=== PATIENT | male | born 1955 | race Caucasian/White ===

== ENCOUNTER 2016-08-09 20:59 | Emergency (ER) | payer OTHER ==
[~2016-08-09 20:59] MED LIST: ALLE180T33 PO; ASTE0.15; ATOR1TAB19 PO; FLON1SPR; LOSA25TA8 PO; SIMV10TA2 PO
[2016-08-09] MEDS ORDERED: KETOROLAC 30 MG/ML VIAL (J1885) As Ordered ONE (22:47)
[2016-08-09 22:55] LABS: BASO # 0.1 K/mm3 (0.0-0.2); BASO % 1.4 % (0.0-1.0); EOS # 0.1 K/mm3 (0.0-0.50); EOS % 2.3 % (0.0-3.0); LARGE UNSTAINED CELL # 0.1 K/mm3 (0.0-0.4); LARGE UNSTAINED CELL % 2.3 % (0.0-4.0); LYMPH # 1.7 K/mm3 (1.5-4.5); LYMPH % 29.1 % (24.0-44.0); MEAN CORPUSCULAR HEMOGLOBIN 30.5 pg (27.0-33.0); MEAN CORPUSCULAR HGB CONC 34.2 g/dl (32.0-36.5); MEAN CORPUSCULAR VOLUME 89.3 fl (80.0-96.0); MONO # 0.5 K/mm3 (0.0-0.8); MONO % 8.4 % (0.0-5.0); NEUTROPHILS # 3.1 K/mm3 (1.8-7.7); NEUTROPHILS % 56.5 % (36.0-66.0); PLATELET COUNT, AUTOMATED 228 k/mm3 (150-450); RED CELL DISTRIBUTION WIDTH 13.4 % (11.5-14.5); WHITE BLOOD COUNT 5.5 K/mm3 (4.0-10.0)
[2016-08-09 23:24] LABS: ANION GAP 7 MEQ/L (8-16); BLOOD UREA NITROGEN 22 MG/DL (7-18); CALCIUM LEVEL 8.9 MG/DL (8.5-10.1); CARBON DIOXIDE LEVEL 30 MEQ/L (21-32); CHLORIDE LEVEL 107 MEQ/L (98-107); CREATININE FOR GFR 0.89 MG/DL (0.70-1.30); GLOMERULAR FILTRATION RATE > 60.0 (>56); GLUCOSE, FASTING 103 MG/DL (70-105); POTASSIUM SERUM 4.1 MEQ/L (3.5-5.1); SODIUM LEVEL 144 MEQ/L (136-145)
--- NOTE | 2016-08-10 00:20 | REPUSA ---
CLINICAL HISTORY: Testicular pain. TECHNIQUE: Realtime sonographic images were obtained in multiple projections. COMMENTS: Both testicles are of normal size and shape and are of homogeneous echo texture. The right testicle m easures 4.4x2.9x3.4 cm. The right epididymis measures 9.2 mm. The left testicle measures 4.3x2.2x2.9 cm . The left epididymis measures 7.7 mm. Color Doppler images reveal normal symmetrical flow to the testicles. There is no evidence for testic ular torsion. There is left varicocele without hydrocele. IMPRESSION: Unremarkable testicles. Left varicocele. Thank you for your kind referral of this patient.
--- NOTE | 2016-08-10 01:01 | EDDOCDS ---
Physician Documentation [facility] Name: Andrés Jenkins Age: 60 yrs Sex: Male : 1955 Arrival Date: 08/09/2016 Time: 20:59 Bed PR Private MD: Other - Complete Info On Cds Disposition: 08/10/16 00:54 Discharged to Home/Self Care. Impression: Orchitis. - Condition is Stable. - Discharge Instructions: Orchitis. - Prescriptions for Ibuprofen 600 mg Oral Tablet - take 1 tablet by ORAL route every 6 hours As needed take with food; 30 tablet. - Medication Reconciliation, Local Pharmacy Hours form. - Follow up: Prudencio Jordan; When: 1 week; Reason: Recheck today's complaints, Continuance of care. - Problem is new. - Symptoms have improved. - Notes: USE MOTRIN AND SCROTAL SUPPORT FOR 1 WEEK, FOLLOW UP WITH DR JORDAN, RETURN TO THE ER IF THE SYMPTOMS WORSEN OR BECOME CONCERNING Historical: - Allergies: PENICILLINS; SULFA (SULFONAMIDES); - Home Meds: 1. losartan 25 mg oral tab Unknown once daily 2. atorvastatin 20 mg oral tab 1 tab once daily pt stopped taking because he googled his symptoms and though this medication was the cause (Last dose: 08/07/2016) 3. Flonase 50 mcg/actuation Nasal spsn - PMHx: Hypercholesterolemia; Hypertension; Pneumothorax, Spontaneousx 3; - PSHx: removal of salavary gland; - Social history: Smoking status: Patient states former smoker of tobacco. No barriers to communication noted, The patient speaks fluent Occitan. - Family history: Not pertinent. - : The pt / caregiver states he / she is not on anticoagulants. Home medication list is obtained from the patient. - Exposure Risk Screening:: None identified. Vital Signs: 08/09 21:02 BP 163 / 85; Pulse 73; Resp 18 S; Temp 97.1(O); Pulse Ox 99% on R/A; Weight 81.65 kg / dd6 180.01 lbs (R); Height 5 ft. 8 in. (172.72 cm) (R); Pain 6/10; 08/10 00:58 BP 158 / 76; Pulse 78; Resp 18; Temp 98.2(O); Pulse Ox 99% on R/A; Pain 4/10; jmb 08/09 21:02 Body Mass Index 27.37 (81.65 kg, 172.72 cm) dd6 MDM: 08/09 21:11 UA Ordered. EDMS 21:11 Urine Culture Ordered. EDMS 22:43 ketorolac 60 mg IM once ordered. ck7 22:44 CBC with Diff Ordered. EDMS 22:44 MED Profile Ordered. EDMS 22:44 Scrotal, US Ordered. EDMS 23:25 CBC with Diff Reviewed. ck7 23:25 MED Profile Reviewed. ck7 23:25 UA Reviewed. ck7 08/10 00:07 DUPLEX SCAN LIMITED (DOPPLER) Ordered. EDMS 00:38 Scrotal, US Reviewed. ck7 00:46 Financial registration complete. hs2 00:51 [facility] Payment Agreement was scanned into [employer] and attached to record. hs2 Administered Medications: 08/09 22:49 Drug: ketorolac 60 mg [ketorolac 30 mg/mL (1 mL) injection solution (2 mL)] Route: IM; cz Site: right gluteus; Signatures: Dispatcher [employer] EDMS Haresh Chase, RPA-C RPA-Cck7 David BustamanteRN RN Sloane Griffith RN RN ms18 Lucy Elliott, Reg Reg hs2 Jesus Ballesteros RN cz The chart was reviewed and I authenticate all verbal orders and agree with the evaluation and treatment provided.Attachments: 08/10 00:51 [facility] Payment Agreement hs2 MTDD
--- NOTE | 2016-08-10 01:01 | EDDOCDS ---
Nurse's Notes [facility] Name: Andrés Jenkins Age: 60 yrs Sex: Male : 1955 Arrival Date: 08/09/2016 Time: 20:59 Bed PR Private MD: Other - Complete Info On Cds Diagnosis: Orchitis Presentation: 08/09 21:04 Presenting complaint: Patient states: that he has bilateral testicle pain, lower back ms18 pain, and burning with urination. Pt states that this same thing happened to him approx 1 month ago. Adult Sepsis Screening: The patient does not have new or worsening altered mentation. Patient's respiratory rate is less than 22. Systolic blood pressure is greater than 100. Patient has a qSOFA score of 0- Negative Sepsis Screen. Suicide/Homicide risk assessment- the patient denies having any suicidal and/or homicidal ideations and does not present with any other emotional, behavioral or mental health complaints. Status: Patient is not a patient service associate or dependent. Transition of care: patient was not received from another setting of care. 21:04 Acuity: SUDHIR Level 3 ms18 21:04 Method Of Arrival: Walkin/Carried/Asstd ms18 Triage Assessment: 21:10 General: Appears in no apparent distress, comfortable, Behavior is appropriate for age, ms18 cooperative. Pain: Location: low back area and pelvis Pain currently is 7 out of 10 on a pain scale. HIV screening NA for this visit Offered previously. Neurological: No deficits noted. Respiratory: Airway is patent. Derm: Skin is pink, warm & dry. Historical: - Allergies: PENICILLINS; SULFA (SULFONAMIDES); - Home Meds: 1. losartan 25 mg oral tab Unknown once daily 2. atorvastatin 20 mg oral tab 1 tab once daily pt stopped taking because he googled his symptoms and though this medication was the cause (Last dose: 08/07/2016) 3. Flonase 50 mcg/actuation Nasal spsn - PMHx: Hypercholesterolemia; Hypertension; Pneumothorax, Spontaneousx 3; - PSHx: removal of salavary gland; - Social history: Smoking status: Patient states former smoker of tobacco. No barriers to communication noted, The patient speaks fluent Australian. - Family history: Not pertinent. - : The pt / caregiver states he / she is not on anticoagulants. Home medication list is obtained from the patient. - Exposure Risk Screening:: None identified. Screenin/03 00:58 Screening information is obtained from the patient. Fall risk: No risks identified. jmb Assistance ADL's: requires no assistance with activities of daily living. Abuse/DV Screen: The patient / caregiver reports he/she is: not in a situation that causes fear, pain or injury. Nutritional screening: No deficits noted. Advance Directives: Currently, there is no health care proxy. There is no active DNR order. There is no living will. There is no Power of Dispatch Supervisor. home support is adequate. Assessment: 00:58 General: Patient instructed on discharge instructions. Patient asked if there were any b questions regarding discharge, patient stated no. Patient signed discharge instructions. Patient discharged in stable condition. . Vital Signs: 08/09 21:02 BP 163 / 85; Pulse 73; Resp 18 S; Temp 97.1(O); Pulse Ox 99% on R/A; Weight 81.65 kg dd6 (R); Height 5 ft. 8 in. (172.72 cm) (R); Pain 6/10; 08/10 00:58 BP 158 / 76; Pulse 78; Resp 18; Temp 98.2(O); Pulse Ox 99% on R/A; Pain 4/10; jmb 08/09 21:02 Body Mass Index 27.37 (81.65 kg, 172.72 cm) dd6 Vitals: 08/09 21:02 Log In Time: August 09, 2016 at 21:02. dd6 ED Course: 21:02 Patient visited by Maksim Wilson PCA. dd6 21:02 Other - Complete Info On Cds is Private Physician. dd6 21:02 Patient moved to Waiting dd6 21:03 Patient visited by Maksim Wilson PCA. dd6 21:03 Patient moved to Pre RCE dd6 21:06 Triage Initiated ms18 22:10 Patient moved to Triage 3 ar3 22:13 Haresh Chase RPA-C is PHCP. ck7 22:13 Duncan Pena MD is Attending Physician. ck7 22:23 Patient visited by Haresh Chase RPA-C. ck7 22:48 MED Profile Sent. ar3 22:48 CBC with Diff Sent. ar3 22:49 Patient moved to TR3 jmb 22:54 Patient visited by Haresh Chase RPA-C. ck7 23:25 Patient visited by Haresh Chase RPA-C. ck7 23:41 Patient moved to Ultrasound dmg 0103 00:09 Patient moved to TR3 dmg 00:21 Scrotal, US Returned. EDMS 00:23 Patient moved to TR1 jmb 00:25 Patient visited by Haresh Chase RPA-C. ck7 00:35 Patient moved to PR2 / jmb 00:51 [facility] Payment Agreement was scanned into [employer] and attached to record. hs2 00:53 Prudencio Meyers is Referral Physician. ck7 00:54 Patient name changed from Andrés\S\\S\Ciulo\S\ to Andrés\S\Pavan\S\Ciulo. EDMS 00:58 The patient / caregiver is instructed regarding the plan of care and ED course. jmb 00:58 No IV's were initiated during this patient's visit. No procedures done that require b assistance. Administered Medications: 08/09 22:49 Drug: ketorolac 60 mg [ketorolac 30 mg/mL (1 mL) injection solution (2 mL)] Route: IM; cz Site: right gluteus; Order Results: Lab Order: UA; SPEC'M 08/09/16 21:15 Test: APPEARANCE, URINE; Value: CLEAR; Range: CLEAR; Status: F Test: COLOR, URINE; Value: COLORLESS; Range: YELLOW; Status: F Test: PH,URINE; Value: 6.0; Range: 5.0-9.0; Units: UNITS; Status: F Test: SPECIFIC GRAVITY URINE AUTO; Value: 1.002; Range: 1.002-1.035; Status: F Test: PROTEIN, URINE AUTO; Value: NEGATIVE; Range: NEGATIVE; Units: mg/dL; Status: F Test: GLUCOSE, URINE (UA) AUTO; Value: NEGATIVE; Range: NEGATIVE; Units: mg/dL; Status: F Test: KETONE, URINE AUTO; Value: NEGATIVE; Range: NEGATIVE; Units: mg/dL; Status: F Test: UROBILINOGEN, URINE AUTO; Value: 0.2; Range: 0.0-2.0; Units: mg/dL; Status: F Test: BILIRUBIN, URINE AUTO; Value: NEGATIVE; Range: NEGATIVE; Status: F Test: NITRITE, URINE AUTO; Value: NEGATIVE; Range: NEGATIVE; Status: F Test: LEUKOCYTE ESTERASE, URINE AUTO; Value: NEGATIVE; Range: NEGATIVE; Status: F Test: BLOOD, URINE BLOOD; Value: NEGATIVE; Range: NEGATIVE; Status: F Test: WBC, URINE AUTO; Value: 0; Range: 0-3; Units: /HPF; Status: F Test: RBC, URINE AUTO; Value: 1; Range: 0-3; Units: /HPF; Status: F Test: BACTERIA, URINE AUTO; Value: NEGATIVE; Range: NEGATIVE; Status: F Test: SQUAMOUS EPITHELIAL CELL UR AU; Value: 0; Range: 0-6; Units: /HPF; Status: F Test: HYALINE CAST, URINE AUTO; Value: 0; Range: 0-1; Units: /LPF; Status: F Lab Order: CBC with Diff; SPEC'M 08/09/16 22:48 Test: WHITE BLOOD COUNT; Value: 5.5; Range: 4.0-10.0; Units: K/mm3; Status: F Test: RED BLOOD COUNT; Value: 4.60; Range: 4.30-6.10; Units: M/mm3; Status: F Test: HEMOGLOBIN; Value: 14.0; Range: 14.0-18.0; Units: g/dl; Status: F Test: HEMATOCRIT; Value: 41.1; Range: 42.0-52.0; Abnormal: Below low normal; Units: %; Status: F Test: MEAN CORPUSCULAR VOLUME; Value: 89.3; Range: 80.0-96.0; Units: fl; Status: F Test: MEAN CORPUSCULAR HEMOGLOBIN; Value: 30.5; Range: 27.0-33.0; Units: pg; Status: F Test: MEAN CORPUSCULAR HGB CONC; Value: 34.2; Range: 32.0-36.5; Units: g/dl; Status: F Test: RED CELL DISTRIBUTION WIDTH; Value: 13.4; Range: 11.5-14.5; Units: %; Status: F Test: PLATELET COUNT, AUTOMATED; Value: 228; Range: 150-450; Units: k/mm3; Status: F Test: NEUTROPHILS %; Value: 56.5; Range: 36.0-66.0; Units: %; Status: F Test: LYMPH %; Value: 29.1; Range: 24.0-44.0; Units: %; Status: F Test: MONO %; Value: 8.4; Range: 0.0-5.0; Abnormal: Above high normal; Units: %; Status: F Test: EOS %; Value: 2.3; Range: 0.0-3.0; Units: %; Status: F Test: BASO %; Value: 1.4; Range: 0.0-1.0; Abnormal: Above high normal; Units: %; Status: F Test: LARGE UNSTAINED CELL %; Value: 2.3; Range: 0.0-4.0; Units: %; Status: F Test: NEUTROPHILS #; Value: 3.1; Range: 1.8-7.7; Units: K/mm3; Status: F Test: LYMPH #; Value: 1.7; Range: 1.5-4.5; Units: K/mm3; Status: F Test: MONO #; Value: 0.5; Range: 0.0-0.8; Units: K/mm3; Status: F Test: EOS #; Value: 0.1; Range: 0.0-0.50; Units: K/mm3; Status: F Test: BASO #; Value: 0.1; Range: 0.0-0.2; Units: K/mm3; Status: F Test: LARGE UNSTAINED CELL #; Value: 0.1; Range: 0.0-0.4; Units: K/mm3; Status: F Lab Order: MED Profile; SPEC'M 08/09/16 22:48 Test: GLUCOSE, FASTING; Value: 103; Range: 70-105; Units: MG/DL; Status: F Test: BLOOD UREA NITROGEN; Value: 22; Range: 7-18; Abnormal: Above high normal; Units: MG/DL; Status: F Test: CREATININE FOR GFR; Value: 0.89; Range: 0.70-1.30; Units: MG/DL; Status: F Test: GLOMERULAR FILTRATION RATE; Value: > 60.0; Range: >56; Status: F Test: SODIUM LEVEL; Value: 144; Range: 136-145; Units: MEQ/L; Status: F Test: POTASSIUM SERUM; Value: 4.1; Range: 3.5-5.1; Units: MEQ/L; Status: F Test: CHLORIDE LEVEL; Value: 107; Range: 98-107; Units: MEQ/L; Status: F Test: CARBON DIOXIDE LEVEL; Value: 30; Range: 21-32; Units: MEQ/L; Status: F Test: ANION GAP; Value: 7; Range: 8-16; Abnormal: Below low normal; Units: MEQ/L; Status: F Test: CALCIUM LEVEL; Value: 8.9; Range: 8.5-10.1; Units: MG/DL; Status: F Test Note: ; Units are mL/min/1.73 m2 Chronic Kidney Disease Staging per NKF: Stage I & II GFR >=60 Normal to Mildly Decreased Stage III GFR 30-59 Moderately Decreased Stage IV GFR 15-29 Severely Decreased Stage V GFR <15 Very Little GFR Left ESRD GFR <15 on [employer] Radiology Order: Scrotal, US Test: Scrotal, US REASON FOR EXAMINATION: TESTICULAR PAIN, R/O TORSION; ; CLINICAL HISTORY: Testicular pain.; TECHNIQUE: Realtime sonographic images were obtained in multiple projections.; COMMENTS:; Both testicles are of normal size and shape and are of homogeneous echo texture. The right testicle m; easures 4.4x2.9x3.4 cm. The right epididymis measures 9.2 mm. The left testicle measures 4.3x2.2x2.9; cm . The left epididymis measures 7.7 mm.; Color Doppler images reveal normal symmetrical flow to the testicles. There is no evidence for testic; ular torsion. There is left varicocele without hydrocele.; IMPRESSION:; Unremarkable testicles.; Left varicocele.; Thank you for your kind referral of this patient.; ; Outcome: 08/10 00:54 Discharge ordered by Provider. ck7 00:58 Discharge Assessment: Patient awake, alert and oriented x 3. No cognitive and/or jmb functional deficits noted. Patient verbalized understanding of disposition instructions. Patient awake and alert. obeys commands, Oriented to person, place and time. Patient verbalized understanding of disposition instructions. Patient has no functional deficits. patient administered narcotics - no. The following High Risk Discharge criteria are identified: None. Discharged to home ambulatory. Condition: stable. Discharge instructions given to patient, Instructed on discharge instructions, follow up and referral plans. medication usage, Demonstrated understanding of instructions, medications, Pt was receptive of discharge instructions/ teaching. Ultrasound Study completed. Property sent home with patient. 01:00 Patient left the ED. leatha Signatures: Dispatcher [employer] EDMS Jesus Ballesteros, RN RN Afia Adams Daniell, MOUNTER SAXOPHONES MOUNTER SAXOPHONES dd6 Kaitlynn Cannon, MOUNTER SAXOPHONES MOUNTER SAXOPHONES ar3 Haresh Chase, RPA-C RPA-Cck7 David Bustamante RN RN jmb Smith, Mallory, RN RN ms18 Lucy Elliott, Reg Reg hs2 MIKE
--- NOTE | 2016-08-12 02:01 | EDDOCDS ---
Physician Documentation [facility] Name: Andrés Jenkins Age: 60 yrs Sex: Male : 1955 Arrival Date: 08/09/2016 Time: 20:59 Bed PR Private MD: Other - Complete Info On Cds Disposition: 08/10/16 00:54 Discharged to Home/Self Care. Impression: Orchitis. - Condition is Stable. - Discharge Instructions: Orchitis. - Prescriptions for Ibuprofen 600 mg Oral Tablet - take 1 tablet by ORAL route every 6 hours As needed take with food; 30 tablet. - Medication Reconciliation, Local Pharmacy Hours form. - Follow up: Prudencio Jordan; When: 1 week; Reason: Recheck today's complaints, Continuance of care. - Problem is new. - Symptoms have improved. - Notes: USE MOTRIN AND SCROTAL SUPPORT FOR 1 WEEK, FOLLOW UP WITH DR JORDAN, RETURN TO THE ER IF THE SYMPTOMS WORSEN OR BECOME CONCERNING Historical: - Allergies: PENICILLINS; SULFA (SULFONAMIDES); - Home Meds: 1. losartan 25 mg oral tab Unknown once daily 2. atorvastatin 20 mg oral tab 1 tab once daily pt stopped taking because he googled his symptoms and though this medication was the cause (Last dose: 08/07/2016) 3. Flonase 50 mcg/actuation Nasal spsn - PMHx: Hypercholesterolemia; Hypertension; Pneumothorax, Spontaneousx 3; - PSHx: removal of salavary gland; - Social history: Smoking status: Patient states former smoker of tobacco. No barriers to communication noted, The patient speaks fluent Pashto. - Family history: Not pertinent. - : The pt / caregiver states he / she is not on anticoagulants. Home medication list is obtained from the patient. - Exposure Risk Screening:: None identified. Vital Signs: 08/09 21:02 BP 163 / 85; Pulse 73; Resp 18 S; Temp 97.1(O); Pulse Ox 99% on R/A; Weight 81.65 kg / dd6 180.01 lbs (R); Height 5 ft. 8 in. (172.72 cm) (R); Pain 6/10; 08/10 00:58 BP 158 / 76; Pulse 78; Resp 18; Temp 98.2(O); Pulse Ox 99% on R/A; Pain 4/10; jmb 08/09 21:02 Body Mass Index 27.37 (81.65 kg, 172.72 cm) dd6 MDM: 08/09 21:11 UA Ordered. EDMS 21:11 Urine Culture Ordered. EDMS 22:43 ketorolac 60 mg IM once ordered. ck7 22:44 CBC with Diff Ordered. EDMS 22:44 MED Profile Ordered. EDMS 22:44 Scrotal, US Ordered. EDMS 23:25 CBC with Diff Reviewed. ck7 23:25 MED Profile Reviewed. ck7 23:25 UA Reviewed. ck7 08/10 00:07 DUPLEX SCAN LIMITED (DOPPLER) Ordered. EDMS 00:38 Scrotal, US Reviewed. ck7 00:46 Financial registration complete. hs2 00:51 [facility] Payment Agreement was scanned into [employer] and attached to record. hs2 04:37 T-Sheet-- Draft Copy was scanned into [employer] and attached to record. hs2 Administered Medications: 08/09 22:49 Drug: ketorolac 60 mg [ketorolac 30 mg/mL (1 mL) injection solution (2 mL)] Route: IM; cz Site: right gluteus; Signatures: Dispatcher [employer] EDMS Haresh Chase, BERNADETTE-C RPA-Cck7 David BustamanteRN RN jmSloane Lazo,JOSÉ LUIS RN ms18 Luyc Elliott, Reg Reg hs2 Jesus Ballesteros RN cz The chart was reviewed and I authenticate all verbal orders and agree with the evaluation and treatment provided.Attachments: 08/10 00:51 [facility] Payment Agreement hs2 04:37 T-Sheet-- Draft Copy hs2 Chart Complete MTDD
--- NOTE | 2016-08-12 02:01 | EDDOCDS ---
Nurse's Notes [facility] Name: Andrés Jenkins Age: 60 yrs Sex: Male : 1955 Arrival Date: 08/09/2016 Time: 20:59 Bed PR Private MD: Other - Complete Info On Cds Diagnosis: Orchitis Presentation: 08/09 21:04 Presenting complaint: Patient states: that he has bilateral testicle pain, lower back ms18 pain, and burning with urination. Pt states that this same thing happened to him approx 1 month ago. Adult Sepsis Screening: The patient does not have new or worsening altered mentation. Patient's respiratory rate is less than 22. Systolic blood pressure is greater than 100. Patient has a qSOFA score of 0- Negative Sepsis Screen. Suicide/Homicide risk assessment- the patient denies having any suicidal and/or homicidal ideations and does not present with any other emotional, behavioral or mental health complaints. Status: Patient is not a director of physiotherapy services or dependent. Transition of care: patient was not received from another setting of care. 21:04 Acuity: SUDHIR Level 3 ms18 21:04 Method Of Arrival: Walkin/Carried/Asstd ms18 Triage Assessment: 21:10 General: Appears in no apparent distress, comfortable, Behavior is appropriate for age, ms18 cooperative. Pain: Location: low back area and pelvis Pain currently is 7 out of 10 on a pain scale. HIV screening NA for this visit Offered previously. Neurological: No deficits noted. Respiratory: Airway is patent. Derm: Skin is pink, warm & dry. Historical: - Allergies: PENICILLINS; SULFA (SULFONAMIDES); - Home Meds: 1. losartan 25 mg oral tab Unknown once daily 2. atorvastatin 20 mg oral tab 1 tab once daily pt stopped taking because he googled his symptoms and though this medication was the cause (Last dose: 08/07/2016) 3. Flonase 50 mcg/actuation Nasal spsn - PMHx: Hypercholesterolemia; Hypertension; Pneumothorax, Spontaneousx 3; - PSHx: removal of salavary gland; - Social history: Smoking status: Patient states former smoker of tobacco. No barriers to communication noted, The patient speaks fluent Ugandan. - Family history: Not pertinent. - : The pt / caregiver states he / she is not on anticoagulants. Home medication list is obtained from the patient. - Exposure Risk Screening:: None identified. Screenin/03 00:58 Screening information is obtained from the patient. Fall risk: No risks identified. jmb Assistance ADL's: requires no assistance with activities of daily living. Abuse/DV Screen: The patient / caregiver reports he/she is: not in a situation that causes fear, pain or injury. Nutritional screening: No deficits noted. Advance Directives: Currently, there is no health care proxy. There is no active DNR order. There is no living will. 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 home support is adequate. Assessment: 00:58 General: Patient instructed on discharge instructions. Patient asked if there were any b questions regarding discharge, patient stated no. Patient signed discharge instructions. Patient discharged in stable condition. . Vital Signs: 08/09 21:02 BP 163 / 85; Pulse 73; Resp 18 S; Temp 97.1(O); Pulse Ox 99% on R/A; Weight 81.65 kg dd6 (R); Height 5 ft. 8 in. (172.72 cm) (R); Pain 6/10; 08/10 00:58 BP 158 / 76; Pulse 78; Resp 18; Temp 98.2(O); Pulse Ox 99% on R/A; Pain 4/10; jmb 08/09 21:02 Body Mass Index 27.37 (81.65 kg, 172.72 cm) dd6 Vitals: 08/09 21:02 Log In Time: August 09, 2016 at 21:02. dd6 ED Course: 21:02 Patient visited by Maksim Wilson PCA. dd6 21:02 Other - Complete Info On Cds is Private Physician. dd6 21:02 Patient moved to Waiting dd6 21:03 Patient visited by Maksim Wilson PCA. dd6 21:03 Patient moved to Pre RCE dd6 21:06 Triage Initiated ms18 22:10 Patient moved to Triage 3 ar3 22:13 Haresh Chase RPA-C is PHCP. ck7 22:13 Duncan Pena MD is Attending Physician. ck7 22:23 Patient visited by Haresh Chase RPA-C. ck7 22:48 MED Profile Sent. ar3 22:48 CBC with Diff Sent. ar3 22:49 Patient moved to TR3 jmb 22:54 Patient visited by Haresh Chase RPA-C. ck7 23:25 Patient visited by Haresh Chase RPA-C. ck7 23:41 Patient moved to Ultrasound dmg 0103 00:09 Patient moved to TR3 dmg 00:21 Scrotal, US Returned. EDMS 00:23 Patient moved to TR1 jmb 00:25 Patient visited by Haresh Chase RPA-C. ck7 00:35 Patient moved to PR2 / 26 jmb 00:51 [place] [place] into [employer] and attached to record. hs2 00:53 Prudencio Meyers is Referral Physician. ck7 00:54 Patient name changed from Andrés\S\\S\Ciulo\S\ to Andrés\S\Pavan\S\Ciulo. EDMS 00:58 The patient / caregiver is instructed regarding the plan of care and ED course. jmb 00:58 No IV's were initiated during this patient's visit. No procedures done that require b assistance. 04:37 T-Sheet-- Draft Copy was scanned into Matter[employer] and attached to record. hs2 Administered Medications: 08/09 22:49 Drug: ketorolac 60 mg [ketorolac 30 mg/mL (1 mL) injection solution (2 mL)] Route: IM; cz Site: right gluteus; Order Results: Lab Order: UA; SPEC'M 08/09/16 21:15 Test: APPEARANCE, URINE; Value: CLEAR; Range: CLEAR; Status: F Test: COLOR, URINE; Value: COLORLESS; Range: YELLOW; Status: F Test: PH,URINE; Value: 6.0; Range: 5.0-9.0; Units: UNITS; Status: F Test: SPECIFIC GRAVITY URINE AUTO; Value: 1.002; Range: 1.002-1.035; Status: F Test: PROTEIN, URINE AUTO; Value: NEGATIVE; Range: NEGATIVE; Units: mg/dL; Status: F Test: GLUCOSE, URINE (UA) AUTO; Value: NEGATIVE; Range: NEGATIVE; Units: mg/dL; Status: F Test: KETONE, URINE AUTO; Value: NEGATIVE; Range: NEGATIVE; Units: mg/dL; Status: F Test: UROBILINOGEN, URINE AUTO; Value: 0.2; Range: 0.0-2.0; Units: mg/dL; Status: F Test: BILIRUBIN, URINE AUTO; Value: NEGATIVE; Range: NEGATIVE; Status: F Test: NITRITE, URINE AUTO; Value: NEGATIVE; Range: NEGATIVE; Status: F Test: LEUKOCYTE ESTERASE, URINE AUTO; Value: NEGATIVE; Range: NEGATIVE; Status: F Test: BLOOD, URINE BLOOD; Value: NEGATIVE; Range: NEGATIVE; Status: F Test: WBC, URINE AUTO; Value: 0; Range: 0-3; Units: /HPF; Status: F Test: RBC, URINE AUTO; Value: 1; Range: 0-3; Units: /HPF; Status: F Test: BACTERIA, URINE AUTO; Value: NEGATIVE; Range: NEGATIVE; Status: F Test: SQUAMOUS EPITHELIAL CELL UR AU; Value: 0; Range: 0-6; Units: /HPF; Status: F Test: HYALINE CAST, URINE AUTO; Value: 0; Range: 0-1; Units: /LPF; Status: F Lab Order: Urine Culture; SPEC'M 08/09/16 21:15 Test: URINE CULTURE; Value: URINE CULTURE RESULT NO GROWTH; Status: F Lab Order: CBC with Diff; SPEC'M 08/09/16 22:48 Test: WHITE BLOOD COUNT; Value: 5.5; Range: 4.0-10.0; Units: K/mm3; Status: F Test: RED BLOOD COUNT; Value: 4.60; Range: 4.30-6.10; Units: M/mm3; Status: F Test: HEMOGLOBIN; Value: 14.0; Range: 14.0-18.0; Units: g/dl; Status: F Test: HEMATOCRIT; Value: 41.1; Range: 42.0-52.0; Abnormal: Below low normal; Units: %; Status: F Test: MEAN CORPUSCULAR VOLUME; Value: 89.3; Range: 80.0-96.0; Units: fl; Status: F Test: MEAN CORPUSCULAR HEMOGLOBIN; Value: 30.5; Range: 27.0-33.0; Units: pg; Status: F Test: MEAN CORPUSCULAR HGB CONC; Value: 34.2; Range: 32.0-36.5; Units: g/dl; Status: F Test: RED CELL DISTRIBUTION WIDTH; Value: 13.4; Range: 11.5-14.5; Units: %; Status: F Test: PLATELET COUNT, AUTOMATED; Value: 228; Range: 150-450; Units: k/mm3; Status: F Test: NEUTROPHILS %; Value: 56.5; Range: 36.0-66.0; Units: %; Status: F Test: LYMPH %; Value: 29.1; Range: 24.0-44.0; Units: %; Status: F Test: MONO %; Value: 8.4; Range: 0.0-5.0; Abnormal: Above high normal; Units: %; Status: F Test: EOS %; Value: 2.3; Range: 0.0-3.0; Units: %; Status: F Test: BASO %; Value: 1.4; Range: 0.0-1.0; Abnormal: Above high normal; Units: %; Status: F Test: LARGE UNSTAINED CELL %; Value: 2.3; Range: 0.0-4.0; Units: %; Status: F Test: NEUTROPHILS #; Value: 3.1; Range: 1.8-7.7; Units: K/mm3; Status: F Test: LYMPH #; Value: 1.7; Range: 1.5-4.5; Units: K/mm3; Status: F Test: MONO #; Value: 0.5; Range: 0.0-0.8; Units: K/mm3; Status: F Test: EOS #; Value: 0.1; Range: 0.0-0.50; Units: K/mm3; Status: F Test: BASO #; Value: 0.1; Range: 0.0-0.2; Units: K/mm3; Status: F Test: LARGE UNSTAINED CELL #; Value: 0.1; Range: 0.0-0.4; Units: K/mm3; Status: F Lab Order: MED Profile; SPEC'M 08/09/16 22:48 Test: GLUCOSE, FASTING; Value: 103; Range: 70-105; Units: MG/DL; Status: F Test: BLOOD UREA NITROGEN; Value: 22; Range: 7-18; Abnormal: Above high normal; Units: MG/DL; Status: F Test: CREATININE FOR GFR; Value: 0.89; Range: 0.70-1.30; Units: MG/DL; Status: F Test: GLOMERULAR FILTRATION RATE; Value: > 60.0; Range: >56; Status: F Test: SODIUM LEVEL; Value: 144; Range: 136-145; Units: MEQ/L; Status: F Test: POTASSIUM SERUM; Value: 4.1; Range: 3.5-5.1; Units: MEQ/L; Status: F Test: CHLORIDE LEVEL; Value: 107; Range: 98-107; Units: MEQ/L; Status: F Test: CARBON DIOXIDE LEVEL; Value: 30; Range: 21-32; Units: MEQ/L; Status: F Test: ANION GAP; Value: 7; Range: 8-16; Abnormal: Below low normal; Units: MEQ/L; Status: F Test: CALCIUM LEVEL; Value: 8.9; Range: 8.5-10.1; Units: MG/DL; Status: F Test Note: ; Units are mL/min/1.73 m2 Chronic Kidney Disease Staging per NKF: Stage I & II GFR >=60 Normal to Mildly Decreased Stage III GFR 30-59 Moderately Decreased Stage IV GFR 15-29 Severely Decreased Stage V GFR <15 Very Little GFR Left ESRD GFR <15 on STAFF PSYCHOLOGIST Radiology Order: Scrotal, US Test: Scrotal, US REASON FOR EXAMINATION: TESTICULAR PAIN, R/O TORSION; ; CLINICAL HISTORY: Testicular pain.; TECHNIQUE: Realtime sonographic images were obtained in multiple projections.; COMMENTS:; Both testicles are of normal size and shape and are of homogeneous echo texture. The right testicle m; easures 4.4x2.9x3.4 cm. The right epididymis measures 9.2 mm. The left testicle measures 4.3x2.2x2.9; cm . The left epididymis measures 7.7 mm.; Color Doppler images reveal normal symmetrical flow to the testicles. There is no evidence for testic; ular torsion. There is left varicocele without hydrocele.; IMPRESSION:; Unremarkable testicles.; Left varicocele.; Thank you for your kind referral of this patient.; ; Outcome: 08/10 00:54 Discharge ordered by Provider. ck7 00:58 Discharge Assessment: Patient awake, alert and oriented x 3. No cognitive and/or jmb functional deficits noted. Patient verbalized understanding of disposition instructions. Patient awake and alert. obeys commands, Oriented to person, place and time. Patient verbalized understanding of disposition instructions. Patient has no functional deficits. patient administered narcotics - no. The following High Risk Discharge criteria are identified: None. Discharged to home ambulatory. Condition: stable. Discharge instructions given to patient, Instructed on discharge instructions, follow up and referral plans. medication usage, Demonstrated understanding of instructions, medications, Pt was receptive of discharge instructions/ teaching. Ultrasound Study completed. Property sent home with patient. 01:00 Patient left the ED. leatha Signatures: Dispatcher [employer] EDMS Jesus Ballesteros, RN Afia Pandey Daniell, HORSER UP HORSER UP dd6 Kaitlynn Cannon, HORSER UP HORSER UP ar3 Haresh Chase, RPA-C RPA-Cck7 David Bustamante RN RN jmb Smith, Mallory, RN RN ms18 Lucy Elliott, Reg Reg hs2 Chart Complete MIKE
--- NOTE | 2016-08-12 02:01 | EDDOCDS ---
Physician Documentation [facility] Name: Andrés Jenkins Age: 60 yrs Sex: Male : 1955 Arrival Date: 08/09/2016 Time: 20:59 Bed PR Private MD: Other - Complete Info On Cds Disposition: 08/10/16 00:54 Discharged to Home/Self Care. Impression: Orchitis. - Condition is Stable. - Discharge Instructions: Orchitis. - Prescriptions for Ibuprofen 600 mg Oral Tablet - take 1 tablet by ORAL route every 6 hours As needed take with food; 30 tablet. - Medication Reconciliation, Local Pharmacy Hours form. - Follow up: Prudencio Jordan; When: 1 week; Reason: Recheck today's complaints, Continuance of care. - Problem is new. - Symptoms have improved. - Notes: USE MOTRIN AND SCROTAL SUPPORT FOR 1 WEEK, FOLLOW UP WITH DR JORDAN, RETURN TO THE ER IF THE SYMPTOMS WORSEN OR BECOME CONCERNING Historical: - Allergies: PENICILLINS; SULFA (SULFONAMIDES); - Home Meds: 1. losartan 25 mg oral tab Unknown once daily 2. atorvastatin 20 mg oral tab 1 tab once daily pt stopped taking because he googled his symptoms and though this medication was the cause (Last dose: 08/07/2016) 3. Flonase 50 mcg/actuation Nasal spsn - PMHx: Hypercholesterolemia; Hypertension; Pneumothorax, Spontaneousx 3; - PSHx: removal of salavary gland; - Social history: Smoking status: Patient states former smoker of tobacco. No barriers to communication noted, The patient speaks fluent Romanian. - Family history: Not pertinent. - : The pt / caregiver states he / she is not on anticoagulants. Home medication list is obtained from the patient. - Exposure Risk Screening:: None identified. Vital Signs: 08/09 21:02 BP 163 / 85; Pulse 73; Resp 18 S; Temp 97.1(O); Pulse Ox 99% on R/A; Weight 81.65 kg / dd6 180.01 lbs (R); Height 5 ft. 8 in. (172.72 cm) (R); Pain 6/10; 08/10 00:58 BP 158 / 76; Pulse 78; Resp 18; Temp 98.2(O); Pulse Ox 99% on R/A; Pain 4/10; jmb 08/09 21:02 Body Mass Index 27.37 (81.65 kg, 172.72 cm) dd6 MDM: 08/09 21:11 UA Ordered. EDMS 21:11 Urine Culture Ordered. EDMS 22:43 ketorolac 60 mg IM once ordered. ck7 22:44 CBC with Diff Ordered. EDMS 22:44 MED Profile Ordered. EDMS 22:44 Scrotal, US Ordered. EDMS 23:25 CBC with Diff Reviewed. ck7 23:25 MED Profile Reviewed. ck7 23:25 UA Reviewed. ck7 08/10 00:07 DUPLEX SCAN LIMITED (DOPPLER) Ordered. EDMS 00:38 Scrotal, US Reviewed. ck7 00:46 Financial registration complete. hs2 00:51 [facility] Payment Agreement was scanned into [employer] and attached to record. hs2 04:37 T-Sheet-- Draft Copy was scanned into [employer] and attached to record. hs2 Administered Medications: 08/09 22:49 Drug: ketorolac 60 mg [ketorolac 30 mg/mL (1 mL) injection solution (2 mL)] Route: IM; cz Site: right gluteus; Signatures: Dispatcher [employer] EDMS Haresh Chase, BERNADETTE-C RPA-Cck7 David BustamanteRN RN jmSloane Lazo,JOSÉ LUIS RN ms18 Lucy Elliott, Reg Reg hs2 Jesus Ballesteros RN cz The chart was reviewed and I authenticate all verbal orders and agree with the evaluation and treatment provided.Attachments: 08/10 00:51 [facility] [place] Agreement hs2 04:37 T-Sheet-- Draft Copy hs2 Chart Complete MTDD
== END 2016-08-10 01:00 | disposition home or self-care (01) ==
LOC: M ED 20:59
DX: N45.2 Orchitis (principal); I10 Essential (primary) hypertension; E78.00 Pure hypercholesterolemia, unspecified; Z87.09 Personal history of other diseases of the respiratory system; Z87.891 Personal history of nicotine dependence; Z79.899 Other long term (current) drug therapy; Z88.0 Allergy status to penicillin; Z88.2 Allergy status to sulfonamides
CPT/HCPCS: 36415; 76870; 80048; 81001; 85025; 87086; 93976; 96372; 99284; J1885

== ENCOUNTER 2016-08-28 20:06 | Emergency (ER) | payer OTHER ==
[2016-08-28] MEDS ORDERED: KETOROLAC 30 MG/ML VIAL (J1885) As Ordered ONE (23:22)
[2016-08-28 23:45] LABS: BASO % 0.9 % (0.0-1.0); EOS # 0.1 K/mm3 (0.0-0.50); EOS % 1.1 % (0.0-3.0); LARGE UNSTAINED CELL # 0.2 K/mm3 (0.0-0.4); LARGE UNSTAINED CELL % 3.7 % (0.0-4.0); LYMPH # 1.6 K/mm3 (1.5-4.5); LYMPH % 26.9 % (24.0-44.0); MEAN CORPUSCULAR HEMOGLOBIN 30.1 pg (27.0-33.0); MEAN CORPUSCULAR HGB CONC 32.5 g/dl (32.0-36.5); MEAN CORPUSCULAR VOLUME 92.5 fl (80.0-96.0); MONO # 0.5 K/mm3 (0.0-0.8); MONO % 9.6 % (0.0-5.0); NEUTROPHILS % 57.9 % (36.0-66.0); PLATELET COUNT, AUTOMATED 247 k/mm3 (150-450); WHITE BLOOD COUNT 5.2 K/mm3 (4.0-10.0)
[2016-08-29 00:29] LABS: ANION GAP 7 MEQ/L (8-16); BLOOD UREA NITROGEN 17 MG/DL (7-18); CALCIUM LEVEL 8.8 MG/DL (8.5-10.1); CARBON DIOXIDE LEVEL 28 MEQ/L (21-32); CHLORIDE LEVEL 106 MEQ/L (98-107); CREATININE FOR GFR 0.81 MG/DL (0.70-1.30); GLOMERULAR FILTRATION RATE > 60.0 (>56); GLUCOSE, FASTING 99 MG/DL (70-105); SODIUM LEVEL 141 MEQ/L (136-145)
--- NOTE | 2016-08-29 00:50 | REPUSA ---
CLINICAL HISTORY: Testicular pain. TECHNIQUE: Realtime sonographic images were obtained in multiple projections. COMMENTS: Both testicles are of normal size and shape and are of homogeneous echo texture. The right testicle m easures 5.1x3.2 x 3.1 cm. The right epididymis measures 8 mm. The left testicle measures 4.4x2.2 x 3. 5 cm . The left epididymis measures 9.8 mm. Color Doppler images reveal normal symmetrical flow to the testicles. There is no evidence for testic ular torsion. There is no evidence of varicocele or hydrocele. IMPRESSION: Unremarkable testicles. Thank you for your kind referral of this patient.
--- NOTE | 2016-08-29 00:50 | REPUSA ---
CLINICAL HISTORY: Suspected inguinal hernia TECHNIQUE: Realtime sonographic images were obtained in multiple projections. COMMENTS: No inguinal hernia is seen. IMPRESSION: Unremarkable study. Thank you for your kind referral of this patient.
--- NOTE | 2016-08-29 01:16 | EDDOCDS ---
Physician Documentation [facility] Name: Andrés Jenkins Age: 60 yrs Sex: Male : 1955 Arrival Date: 08/28/2016 Time: 20:06 Bed Triage 2 Private MD: Other - Complete Info On Cds Disposition: 08/29/16 01:00 Discharged to Home/Self Care. Impression: Pelvic and perineal pain. - Condition is Stable. - Discharge Instructions: Pelvic Pain, Male. - Medication Reconciliation, Local Pharmacy Hours form. - Follow up: Private Physician; When: Call to arrange an appointment; Reason: Recheck today's complaints, Continuance of care. - Problem is an ongoing problem. - Symptoms are unchanged. Historical: - Allergies: PENICILLINS; SULFA (SULFONAMIDES); - Home Meds: 1. atorvastatin 20 mg oral tab 1 tab once daily (Last dose: 08/28/2016) 2. Flonase 50 mcg/actuation Nasal spsn (Last dose: 08/28/2016) 3. losartan 25 mg oral tab 1 tab once daily (Last dose: 08/28/2016) 4. Spiriva with HandiHaler 18 mcg Inhl CpDv 1 cap once daily (Last dose: 08/28/2016) 5. Levaquin 750 mg Oral tab 1 tab once daily (Last dose: 08/28/2016) - PMHx: Hypercholesterolemia; Hypertension; Pneumothorax, Spontaneousx 3; - PSHx: removal of salavary gland; - Social history: Smoking status: Patient states former smoker of tobacco. No barriers to communication noted, The patient speaks fluent Danish, Speaks appropriately for age. - Family history: Not pertinent. - : The pt / caregiver states he / she is not on anticoagulants. Home medication list is obtained from the patient. - Exposure Risk Screening:: None identified. Vital Signs: 08/28 20:09 BP 157 / 84 LA Sitting (auto/reg); Pulse 64 LA; Resp 18 S; Temp 97.9(O); Pulse Ox 100% mt4 on R/A; Weight 81.65 kg / 180.01 lbs (R); Height 5 ft. 8 in. (172.72 cm) (R); Pain 8/10; 08/29 01:12 BP 149 / 78; Pulse 65; Resp 18; Temp 97.6(O); Pulse Ox 97% on R/A; km 08/28 20:09 Body Mass Index 27.37 (81.65 kg, 172.72 cm) mt4 MDM: 08/28 20:33 UA Ordered. EDMS 20:34 Culture Urine Ordered. EDMS 23:08 UA Reviewed. mo1 23:18 ketorolac 60 mg IM once ordered. mo1 23:18 CBC with Diff Ordered. EDMS 23:18 BMP Ordered. EDMS 23:20 US Scrotal Ordered. EDMS 23:20 US Abd Limited Ordered. EDMS 23:37 Financial registration complete. [facility] 23:43 [facility] Payment Agreement was scanned into [employer] and attached to record. gjb 08/29 00:20 CBC with Diff Reviewed. mo1 00:34 BMP Reviewed. mo1 Administered Medications: 08/28 23:32 Drug: ketorolac 60 mg [ketorolac 30 mg/mL (1 mL) injection solution (2 mL)] Route: IM; cz Site: left gluteus; Signatures: Dispatcher [employer] Chel Reed, RN RN [facility] [place] Stas Romo PA PA mo1 Shelby Stewart gjb Jesus Ballesteros RN cz The chart was reviewed and I authenticate all verbal orders and agree with the evaluation and treatment provided.Attachments: 23:43 [facility] Payment Agreement [facility] MTDD
--- NOTE | 2016-08-29 01:16 | EDDOCDS ---
Nurse's Notes [facility] Name: Andrés Jenkins Age: 60 yrs Sex: Male : 1955 Arrival Date: 08/28/2016 Time: 20:06 Bed Triage 2 Private MD: Other - Complete Info On Cds Diagnosis: Pelvic and perineal pain Presentation: 08/28 20:15 Presenting complaint: Patient states: Pain in testicles and penis and low back. Was kmg1 seen here 2 weeks ago for same. Was seen by PCP and treated with Levaquin but has gotten worse. Getting worse. Acute neurological deficits are not present. Mechanism of Injury: No Mechanism of Injury. Adult Sepsis Screening: The patient does not have new or worsening altered mentation. Patient's respiratory rate is less than 22. Systolic blood pressure is greater than 100. Patient has a qSOFA score of 0- Negative Sepsis Screen. Suicide/Homicide risk assessment- the patient denies having any suicidal and/or homicidal ideations and does not present with any other emotional, behavioral or mental health complaints. Status: Patient is not a special service representative or dependent. Transition of care: patient was not received from another setting of care. 20:15 Acuity: SUDHIR Level 3 [facility] [place]:15 Method Of Arrival: Walkin/Carried/Asstd [facility] [place] Triage Assessment: 20:19 General: Appears uncomfortable, Behavior is appropriate for age, cooperative. Pain: [facility] [place] Location: coccyx, left lower back, right lower back, head of penis, shaft of penis, left testicle and right testicle. HIV screening NA for this visit Offered previously. : Reports burning with urination pain. Musculoskeletal: No deficits noted. Historical: - Allergies: PENICILLINS; SULFA (SULFONAMIDES); - Home Meds: 1. atorvastatin 20 mg oral tab 1 tab once daily (Last dose: 08/28/2016) 2. Flonase 50 mcg/actuation Nasal spsn (Last dose: 08/28/2016) 3. losartan 25 mg oral tab 1 tab once daily (Last dose: 08/28/2016) 4. Spiriva with HandiHaler 18 mcg Inhl CpDv 1 cap once daily (Last dose: 08/28/2016) 5. Levaquin 750 mg Oral tab 1 tab once daily (Last dose: 08/28/2016) - PMHx: Hypercholesterolemia; Hypertension; Pneumothorax, Spontaneousx 3; - PSHx: removal of salavary gland; - Social history: Smoking status: Patient states former smoker of tobacco. No barriers to communication noted, The patient speaks fluent Bengali, Speaks appropriately for age. - Family history: Not pertinent. - : The pt / caregiver states he / she is not on anticoagulants. Home medication list is obtained from the patient. - Exposure Risk Screening:: None identified. Screenin/22 01:12 Screening information is obtained from the patient. Fall risk: No risks identified. kmg1 Assistance ADL's: requires no assistance with activities of daily living. Abuse/DV Screen: The patient / caregiver reports he/she is: not in a situation that causes fear, pain or injury. Nutritional screening: No deficits noted. Advance Directives: Currently, there is no health care proxy. home support is adequate. Assessment: 01:12 General: Appears in no apparent distress, comfortable, Behavior is appropriate for age, kmg1 cooperative, pleasant. Pain: Location: right testicle and left testicle and shaft of penis and head of penis and groin Pain currently is 3 out of 10 on a pain scale. Vital Signs: 08/28 20:09 BP 157 / 84 LA Sitting (auto/reg); Pulse 64 LA; Resp 18 S; Temp 97.9(O); Pulse Ox 100% [facility] on R/A; Weight 81.65 kg (R); Height 5 ft. 8 in. (172.72 cm) (R); Pain 8/10; 08/29 01:12 BP 149 / 78; Pulse 65; Resp 18; Temp 97.6(O); Pulse Ox 97% on R/A; [facility] [place] 08/28 20:09 Body Mass Index 27.37 (81.65 kg, 172.72 cm) [facility] Vitals: 08/28 20:09 Log In Time: August 28, 2016 at 20:06. [facility] ED Course: 20:08 Patient visited by Carlita Interiano. [facility] 20:08 Other - Complete Info On Cds is Private Physician. mt4 20:08 Patient moved to Waiting mt4 20:10 Patient moved to Pre RCE mt4 20:17 Triage Initiated [facility] [place] 20:58 Patient visited by Nisha Ramirez. [facility] [place] 20:58 Urine collected. Clean catch specimen. Urine specimen sent to lab. sew 20:58 Culture Urine Sent. sew 20:58 UA Sent. sew 22:39 Patient moved to Triage 1 cz 22:55 Stas Romo PA is PHCP. mo1 22:55 Juan Gastelum DO is Attending Physician. mo1 23:10 Patient visited by Stas Romo PA. mo1 23:31 Patient moved to TR8 kmg1 23:33 BMP Sent. cz 23:33 CBC with Diff Sent. cz 23:34 Patient moved to TR4 cz 23:43 [facility] [place] Payment Agreement was scanned into [employer] and attached to record. gjb 23:46 Patient name changed from Andrés\S\Pavan\S\Ciulo\S\ to Andrés\S\ \S\Ciulo. EDMS 08/29 01:00 Patient moved to Triage 2 mo1 01:05 US Abd Limited Returned. EDMS 01:05 US Scrotal Returned. EDMS 01:12 The patient / caregiver is instructed regarding the plan of care and ED course. km 01:12 No IV's were initiated during this patient's visit. No procedures done that require [facility] assistance. Administered Medications: 08/28 23:32 Drug: ketorolac 60 mg [ketorolac 30 mg/mL (1 mL) injection solution (2 mL)] Route: IM; cz Site: left gluteus; Order Results: Lab Order: UA; SPEC'M 08/28/16 20:57 Test: APPEARANCE, URINE; Value: CLEAR; Range: CLEAR; Status: F Test: COLOR, URINE; Value: STRAW; Range: YELLOW; Status: F Test: PH,URINE; Value: 7.0; Range: 5.0-9.0; Units: UNITS; Status: F Test: SPECIFIC GRAVITY URINE AUTO; Value: 1.008; Range: 1.002-1.035; Status: F Test: PROTEIN, URINE AUTO; Value: NEGATIVE; Range: NEGATIVE; Units: mg/dL; Status: F Test: GLUCOSE, URINE (UA) AUTO; Value: NEGATIVE; Range: NEGATIVE; Units: mg/dL; Status: F Test: KETONE, URINE AUTO; Value: NEGATIVE; Range: NEGATIVE; Units: mg/dL; Status: F Test: UROBILINOGEN, URINE AUTO; Value: 0.2; Range: 0.0-2.0; Units: mg/dL; Status: F Test: BILIRUBIN, URINE AUTO; Value: NEGATIVE; Range: NEGATIVE; Status: F Test: NITRITE, URINE AUTO; Value: NEGATIVE; Range: NEGATIVE; Status: F Test: LEUKOCYTE ESTERASE, URINE AUTO; Value: NEGATIVE; Range: NEGATIVE; Status: F Test: BLOOD, URINE BLOOD; Value: NEGATIVE; Range: NEGATIVE; Status: F Test: WBC, URINE AUTO; Value: 0; Range: 0-3; Units: /HPF; Status: F Test: RBC, URINE AUTO; Value: 1; Range: 0-3; Units: /HPF; Status: F Test: BACTERIA, URINE AUTO; Value: NEGATIVE; Range: NEGATIVE; Status: F Test: SQUAMOUS EPITHELIAL CELL UR AU; Value: 0; Range: 0-6; Units: /HPF; Status: F Test: HYALINE CAST, URINE AUTO; Value: 0; Range: 0-1; Units: /LPF; Status: F Lab Order: CBC with Diff; SPEC'M 08/28/16 23:25 Test: WHITE BLOOD COUNT; Value: 5.2; Range: 4.0-10.0; Units: K/mm3; Status: F Test: RED BLOOD COUNT; Value: 4.60; Range: 4.30-6.10; Units: M/mm3; Status: F Test: HEMOGLOBIN; Value: 13.8; Range: 14.0-18.0; Abnormal: Below low normal; Units: g/dl; Status: F Test: HEMATOCRIT; Value: 42.6; Range: 42.0-52.0; Units: %; Status: F Test: MEAN CORPUSCULAR VOLUME; Value: 92.5; Range: 80.0-96.0; Units: fl; Status: F Test: MEAN CORPUSCULAR HEMOGLOBIN; Value: 30.1; Range: 27.0-33.0; Units: pg; Status: F Test: MEAN CORPUSCULAR HGB CONC; Value: 32.5; Range: 32.0-36.5; Units: g/dl; Status: F Test: RED CELL DISTRIBUTION WIDTH; Value: 13.0; Range: 11.5-14.5; Units: %; Status: F Test: PLATELET COUNT, AUTOMATED; Value: 247; Range: 150-450; Units: k/mm3; Status: F Test: NEUTROPHILS %; Value: 57.9; Range: 36.0-66.0; Units: %; Status: F Test: LYMPH %; Value: 26.9; Range: 24.0-44.0; Units: %; Status: F Test: MONO %; Value: 9.6; Range: 0.0-5.0; Abnormal: Above high normal; Units: %; Status: F Test: EOS %; Value: 1.1; Range: 0.0-3.0; Units: %; Status: F Test: BASO %; Value: 0.9; Range: 0.0-1.0; Units: %; Status: F Test: LARGE UNSTAINED CELL %; Value: 3.7; Range: 0.0-4.0; Units: %; Status: F Test: NEUTROPHILS #; Value: 3.0; Range: 1.8-7.7; Units: K/mm3; Status: F Test: LYMPH #; Value: 1.6; Range: 1.5-4.5; Units: K/mm3; Status: F Test: MONO #; Value: 0.5; Range: 0.0-0.8; Units: K/mm3; Status: F Test: EOS #; Value: 0.1; Range: 0.0-0.50; Units: K/mm3; Status: F Test: BASO #; Value: 0.0; Range: 0.0-0.2; Units: K/mm3; Status: F Test: LARGE UNSTAINED CELL #; Value: 0.2; Range: 0.0-0.4; Units: K/mm3; Status: F Lab Order: [facility]; SPEC'M 08/28/16 23:25 Test: GLUCOSE, FASTING; Value: 99; Range: 70-105; Units: MG/DL; Status: F Test: BLOOD UREA NITROGEN; Value: 17; Range: 7-18; Units: MG/DL; Status: F Test: CREATININE FOR GFR; Value: 0.81; Range: 0.70-1.30; Units: MG/DL; Status: F Test: GLOMERULAR FILTRATION RATE; Value: > 60.0; Range: >56; Status: F Test: SODIUM LEVEL; Value: 141; Range: 136-145; Units: MEQ/L; Status: F Test: POTASSIUM SERUM; Value: 4.0; Range: 3.5-5.1; Units: MEQ/L; Status: F Test: CHLORIDE LEVEL; Value: 106; Range: 98-107; Units: MEQ/L; Status: F Test: CARBON DIOXIDE LEVEL; Value: 28; Range: 21-32; Units: MEQ/L; Status: F Test: ANION GAP; Value: 7; Range: 8-16; Abnormal: Below low normal; Units: MEQ/L; Status: F Test: CALCIUM LEVEL; Value: 8.8; Range: 8.5-10.1; Units: MG/DL; Status: F Test Note: ; Units are mL/min/1.73 m2 Chronic Kidney Disease Staging per NKF: Stage I & II GFR >=60 Normal to Mildly Decreased Stage III GFR 30-59 Moderately Decreased Stage IV GFR 15-29 Severely Decreased Stage V GFR <15 Very Little GFR Left ESRD GFR <15 on [employer] Radiology Order: US Scrotal Test: US Scrotal REASON FOR EXAMINATION: left testicular pain; ; CLINICAL HISTORY: Suspected inguinal hernia; TECHNIQUE: Realtime sonographic images were obtained in multiple projections.; COMMENTS:; No inguinal hernia is seen.; IMPRESSION:; Unremarkable study.; Thank you for your kind referral of this patient.; ; Radiology Order: US Abd Limited Test: US Abd Limited REASON FOR EXAMINATION: left pelvic, r/o hernia; ; CLINICAL HISTORY: Testicular pain.; TECHNIQUE: Realtime sonographic images were obtained in multiple projections.; COMMENTS:; Both testicles are of normal size and shape and are of homogeneous echo texture. The right testicle m; easures 5.1x3.2 x 3.1 cm. The right epididymis measures 8 mm. The left testicle measures 4.4x2.2 x 3.; 5 cm . The left epididymis measures 9.8 mm.; Color Doppler images reveal normal symmetrical flow to the testicles. There is no evidence for testic; ular torsion. There is no evidence of varicocele or hydrocele.; IMPRESSION:; Unremarkable testicles.; Thank you for your kind referral of this patient.; ; Outcome: 08/29 01:00 Discharge ordered by Provider. mo1 01:12 Discharge Assessment: Patient awake, alert and oriented x 3. No cognitive and/or kmg1 functional deficits noted. Patient verbalized understanding of disposition instructions. Patient awake and alert. patient administered narcotics - no. The following High Risk Discharge criteria are identified: None. Discharged to home ambulatory. Condition: improved. Discharge instructions given to patient, Instructed on discharge instructions, follow up and referral plans. Demonstrated understanding of instructions, Pt was receptive of discharge instructions/ teaching. Ultrasound Study completed. Property sent home with patient. 01:15 Patient left the ED. kmg1 Signatures: Dispatcher [employer] EDMS Chel Varner RN RN kmg1 Jesus Ballesteros, Carlita James RN, mt4 Nisha Ramirez Michael, PA PA mo1 Shelby Stewart MIKE
--- NOTE | 2016-08-31 02:17 | EDDOCDS ---
Nurse's Notes [facility] Name: Andrés Jenkins Age: 60 yrs Sex: Male : 1955 Arrival Date: 08/28/2016 Time: 20:06 Bed Triage 2 Private MD: Other - Complete Info On Cds Diagnosis: Pelvic and perineal pain Presentation: 08/28 20:15 Presenting complaint: Patient states: Pain in testicles and penis and low back. Was kmg1 seen here 2 weeks ago for same. Was seen by PCP and treated with Levaquin but has gotten worse. Getting worse. Acute neurological deficits are not present. Mechanism of Injury: No Mechanism of Injury. Adult Sepsis Screening: The patient does not have new or worsening altered mentation. Patient's respiratory rate is less than 22. Systolic blood pressure is greater than 100. Patient has a qSOFA score of 0- Negative Sepsis Screen. Suicide/Homicide risk assessment- the patient denies having any suicidal and/or homicidal ideations and does not present with any other emotional, behavioral or mental health complaints. 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 Transition of care: patient was not received from another setting of care. 20:15 Acuity: SUDHIR Level 3 [facility] [place]:15 Method Of Arrival: Walkin/Carried/Asstd [facility] [place] Triage Assessment: 20:19 General: Appears uncomfortable, Behavior is appropriate for age, cooperative. Pain: [facility] [place] Location: coccyx, left lower back, right lower back, head of penis, shaft of penis, left testicle and right testicle. HIV screening NA for this visit Offered previously. : Reports burning with urination pain. Musculoskeletal: No deficits noted. Historical: - Allergies: PENICILLINS; SULFA (SULFONAMIDES); - Home Meds: 1. atorvastatin 20 mg oral tab 1 tab once daily (Last dose: 08/28/2016) 2. Flonase 50 mcg/actuation Nasal spsn (Last dose: 08/28/2016) 3. losartan 25 mg oral tab 1 tab once daily (Last dose: 08/28/2016) 4. Spiriva with HandiHaler 18 mcg Inhl CpDv 1 cap once daily (Last dose: 08/28/2016) 5. Levaquin 750 mg Oral tab 1 tab once daily (Last dose: 08/28/2016) - PMHx: Hypercholesterolemia; Hypertension; Pneumothorax, Spontaneousx 3; - PSHx: removal of salavary gland; - Social history: Smoking status: Patient states former smoker of tobacco. No barriers to communication noted, The patient speaks fluent Chinese, Speaks appropriately for age. - Family history: Not pertinent. - : The pt / caregiver states he / she is not on anticoagulants. Home medication list is obtained from the patient. - Exposure Risk Screening:: None identified. Screenin/22 01:12 Screening information is obtained from the patient. Fall risk: No risks identified. kmg1 Assistance ADL's: requires no assistance with activities of daily living. Abuse/DV Screen: The patient / caregiver reports he/she is: not in a situation that causes fear, pain or injury. Nutritional screening: No deficits noted. Advance Directives: Currently, there is no health care proxy. home support is adequate. Assessment: 01:12 General: Appears in no apparent distress, comfortable, Behavior is appropriate for age, kmg1 cooperative, pleasant. Pain: Location: right testicle and left testicle and shaft of penis and head of penis and groin Pain currently is 3 out of 10 on a pain scale. Vital Signs: 08/28 20:09 BP 157 / 84 LA Sitting (auto/reg); Pulse 64 LA; Resp 18 S; Temp 97.9(O); Pulse Ox 100% [facility] on R/A; Weight 81.65 kg (R); Height 5 ft. 8 in. (172.72 cm) (R); Pain 8/10; 08/29 01:12 BP 149 / 78; Pulse 65; Resp 18; Temp 97.6(O); Pulse Ox 97% on R/A; [facility] [place] 08/28 20:09 Body Mass Index 27.37 (81.65 kg, 172.72 cm) [facility] Vitals: 08/28 20:09 Log In Time: August 28, 2016 at 20:06. [facility] ED Course: 20:08 Patient visited by Carlita Interiano. [facility] 20:08 Other - Complete Info On Cds is Private Physician. mt4 20:08 Patient moved to Waiting mt4 20:10 Patient moved to Pre RCE mt4 20:17 Triage Initiated [facility] [place] 20:58 Patient visited by Nisha Ramirez. [facility] [place] 20:58 Urine collected. Clean catch specimen. Urine specimen sent to lab. sew 20:58 Culture Urine Sent. sew 20:58 UA Sent. sew 22:39 Patient moved to Triage 1 cz 22:55 Stas Romo PA is PHCP. mo1 22:55 Juan Gastelum DO is Attending Physician. mo1 23:10 Patient visited by Stas Romo PA. mo1 23:31 Patient moved to TR8 kmg1 23:33 BMP Sent. cz 23:33 CBC with Diff Sent. cz 23:34 Patient moved to TR4 cz 23:43 [facility] [place] Agreement was scanned into [employer] and attached to record. gjb 23:46 Patient name changed from Andrés\S\Pavan\S\Ciulo\S\ to Andrés\S\ \S\Ciulo. EDMS 08/29 01:00 Patient moved to Triage 2 mo1 01:05 US Abd Limited Returned. EDMS 01:05 US Scrotal Returned. EDMS 01:12 The patient / caregiver is instructed regarding the plan of care and ED course. km 01:12 No IV's were initiated during this patient's visit. No procedures done that require [facility] assistance. 13:54 T-Sheet-- Draft Copy was scanned into [employer] and attached to record. kf3 Administered Medications: 08/28 23:32 Drug: ketorolac 60 mg [ketorolac 30 mg/mL (1 mL) injection solution (2 mL)] Route: IM; cz Site: left gluteus; Order Results: Lab Order: UA; SPEC'M 08/28/16 20:57 Test: APPEARANCE, URINE; Value: CLEAR; Range: CLEAR; Status: F Test: COLOR, URINE; Value: STRAW; Range: YELLOW; Status: F Test: PH,URINE; Value: 7.0; Range: 5.0-9.0; Units: UNITS; Status: F Test: SPECIFIC GRAVITY URINE AUTO; Value: 1.008; Range: 1.002-1.035; Status: F Test: PROTEIN, URINE AUTO; Value: NEGATIVE; Range: NEGATIVE; Units: mg/dL; Status: F Test: GLUCOSE, URINE (UA) AUTO; Value: NEGATIVE; Range: NEGATIVE; Units: mg/dL; Status: F Test: KETONE, URINE AUTO; Value: NEGATIVE; Range: NEGATIVE; Units: mg/dL; Status: F Test: UROBILINOGEN, URINE AUTO; Value: 0.2; Range: 0.0-2.0; Units: mg/dL; Status: F Test: BILIRUBIN, URINE AUTO; Value: NEGATIVE; Range: NEGATIVE; Status: F Test: NITRITE, URINE AUTO; Value: NEGATIVE; Range: NEGATIVE; Status: F Test: LEUKOCYTE ESTERASE, URINE AUTO; Value: NEGATIVE; Range: NEGATIVE; Status: F Test: BLOOD, URINE BLOOD; Value: NEGATIVE; Range: NEGATIVE; Status: F Test: WBC, URINE AUTO; Value: 0; Range: 0-3; Units: /HPF; Status: F Test: RBC, URINE AUTO; Value: 1; Range: 0-3; Units: /HPF; Status: F Test: BACTERIA, URINE AUTO; Value: NEGATIVE; Range: NEGATIVE; Status: F Test: SQUAMOUS EPITHELIAL CELL UR AU; Value: 0; Range: 0-6; Units: /HPF; Status: F Test: HYALINE CAST, URINE AUTO; Value: 0; Range: 0-1; Units: /LPF; Status: F Lab Order: Culture Urine; SPEC'M 08/28/16 20:57 Test: URINE CULTURE; Value: URINE CULTURE RESULT NO GROWTH; Status: F Lab Order: CBC with Diff; SPEC'M 08/28/16 23:25 Test: WHITE BLOOD COUNT; Value: 5.2; Range: 4.0-10.0; Units: K/mm3; Status: F Test: RED BLOOD COUNT; Value: 4.60; Range: 4.30-6.10; Units: M/mm3; Status: F Test: HEMOGLOBIN; Value: 13.8; Range: 14.0-18.0; Abnormal: Below low normal; Units: g/dl; Status: F Test: HEMATOCRIT; Value: 42.6; Range: 42.0-52.0; Units: %; Status: F Test: MEAN CORPUSCULAR VOLUME; Value: 92.5; Range: 80.0-96.0; Units: fl; Status: F Test: MEAN CORPUSCULAR HEMOGLOBIN; Value: 30.1; Range: 27.0-33.0; Units: pg; Status: F Test: MEAN CORPUSCULAR HGB CONC; Value: 32.5; Range: 32.0-36.5; Units: g/dl; Status: F Test: RED CELL DISTRIBUTION WIDTH; Value: 13.0; Range: 11.5-14.5; Units: %; Status: F Test: PLATELET COUNT, AUTOMATED; Value: 247; Range: 150-450; Units: k/mm3; Status: F Test: NEUTROPHILS %; Value: 57.9; Range: 36.0-66.0; Units: %; Status: F Test: LYMPH %; Value: 26.9; Range: 24.0-44.0; Units: %; Status: F Test: MONO %; Value: 9.6; Range: 0.0-5.0; Abnormal: Above high normal; Units: %; Status: F Test: EOS %; Value: 1.1; Range: 0.0-3.0; Units: %; Status: F Test: BASO %; Value: 0.9; Range: 0.0-1.0; Units: %; Status: F Test: LARGE UNSTAINED CELL %; Value: 3.7; Range: 0.0-4.0; Units: %; Status: F Test: NEUTROPHILS #; Value: 3.0; Range: 1.8-7.7; Units: K/mm3; Status: F Test: LYMPH #; Value: 1.6; Range: 1.5-4.5; Units: K/mm3; Status: F Test: MONO #; Value: 0.5; Range: 0.0-0.8; Units: K/mm3; Status: F Test: EOS #; Value: 0.1; Range: 0.0-0.50; Units: K/mm3; Status: F Test: BASO #; Value: 0.0; Range: 0.0-0.2; Units: K/mm3; Status: F Test: LARGE UNSTAINED CELL #; Value: 0.2; Range: 0.0-0.4; Units: K/mm3; Status: F Lab Order: [facility]; SPEC'M 08/28/16 23:25 Test: GLUCOSE, FASTING; Value: 99; Range: 70-105; Units: MG/DL; Status: F Test: BLOOD UREA NITROGEN; Value: 17; Range: 7-18; Units: MG/DL; Status: F Test: CREATININE FOR GFR; Value: 0.81; Range: 0.70-1.30; Units: MG/DL; Status: F Test: GLOMERULAR FILTRATION RATE; Value: > 60.0; Range: >56; Status: F Test: SODIUM LEVEL; Value: 141; Range: 136-145; Units: MEQ/L; Status: F Test: POTASSIUM SERUM; Value: 4.0; Range: 3.5-5.1; Units: MEQ/L; Status: F Test: CHLORIDE LEVEL; Value: 106; Range: 98-107; Units: MEQ/L; Status: F Test: CARBON DIOXIDE LEVEL; Value: 28; Range: 21-32; Units: MEQ/L; Status: F Test: ANION GAP; Value: 7; Range: 8-16; Abnormal: Below low normal; Units: MEQ/L; Status: F Test: CALCIUM LEVEL; Value: 8.8; Range: 8.5-10.1; Units: MG/DL; Status: F Test Note: ; Units are mL/min/1.73 m2 Chronic Kidney Disease Staging per NKF: Stage I & II GFR >=60 Normal to Mildly Decreased Stage III GFR 30-59 Moderately Decreased Stage IV GFR 15-29 Severely Decreased Stage V GFR <15 Very Little GFR Left ESRD GFR <15 on [employer] Radiology Order: US Scrotal Test: US Scrotal REASON FOR EXAMINATION: left testicular pain; ; CLINICAL HISTORY: Suspected inguinal hernia; TECHNIQUE: Realtime sonographic images were obtained in multiple projections.; COMMENTS:; No inguinal hernia is seen.; IMPRESSION:; Unremarkable study.; Thank you for your kind referral of this patient.; ; Radiology Order: US Abd Limited Test: US Abd Limited REASON FOR EXAMINATION: left pelvic, r/o hernia; ; CLINICAL HISTORY: Testicular pain.; TECHNIQUE: Realtime sonographic images were obtained in multiple projections.; COMMENTS:; Both testicles are of normal size and shape and are of homogeneous echo texture. The right testicle m; easures 5.1x3.2 x 3.1 cm. The right epididymis measures 8 mm. The left testicle measures 4.4x2.2 x 3.; 5 cm . The left epididymis measures 9.8 mm.; Color Doppler images reveal normal symmetrical flow to the testicles. There is no evidence for testic; ular torsion. There is no evidence of varicocele or hydrocele.; IMPRESSION:; Unremarkable testicles.; Thank you for your kind referral of this patient.; ; Outcome: 08/29 01:00 Discharge ordered by Provider. mo1 01:12 Discharge Assessment: Patient awake, alert and oriented x 3. No cognitive and/or kmg1 functional deficits noted. Patient verbalized understanding of disposition instructions. Patient awake and alert. patient administered narcotics - no. The following High Risk Discharge criteria are identified: None. Discharged to home ambulatory. Condition: improved. Discharge instructions given to patient, Instructed on discharge instructions, follow up and referral plans. Demonstrated understanding of instructions, Pt was receptive of discharge instructions/ teaching. Ultrasound Study completed. Property sent home with patient. 01:15 Patient left the ED. [facility] [place] Signatures: Dispatcher [employer] EDMS Chel Varner RN RN kmg1 Jesus Ballesteros RN RN cz Mo Arce, Reg Reg kf3 Carlita Interiano mt4 Nisha Ramirez Michael, PA PA mo1 Shelby Stewart Chart Complete MTDJohn
--- NOTE | 2016-08-31 02:17 | EDDOCDS ---
Physician Documentation [facility] Name: Andrés Jenkins Age: 60 yrs Sex: Male : 1955 Arrival Date: 08/28/2016 Time: 20:06 Bed Triage 2 Private MD: Other - Complete Info On Cds Disposition: 08/29/16 01:00 Discharged to Home/Self Care. Impression: Pelvic and perineal pain. - Condition is Stable. - Discharge Instructions: Pelvic Pain, Male. - Medication Reconciliation, Local Pharmacy Hours form. - Follow up: Private Physician; When: Call to arrange an appointment; Reason: Recheck today's complaints, Continuance of care. - Problem is an ongoing problem. - Symptoms are unchanged. Historical: - Allergies: PENICILLINS; SULFA (SULFONAMIDES); - Home Meds: 1. atorvastatin 20 mg oral tab 1 tab once daily (Last dose: 08/28/2016) 2. Flonase 50 mcg/actuation Nasal spsn (Last dose: 08/28/2016) 3. losartan 25 mg oral tab 1 tab once daily (Last dose: 08/28/2016) 4. Spiriva with HandiHaler 18 mcg Inhl CpDv 1 cap once daily (Last dose: 08/28/2016) 5. Levaquin 750 mg Oral tab 1 tab once daily (Last dose: 08/28/2016) - PMHx: Hypercholesterolemia; Hypertension; Pneumothorax, Spontaneousx 3; - PSHx: removal of salavary gland; - Social history: Smoking status: Patient states former smoker of tobacco. No barriers to communication noted, The patient speaks fluent Polish, Speaks appropriately for age. - Family history: Not pertinent. - : The pt / caregiver states he / she is not on anticoagulants. Home medication list is obtained from the patient. - Exposure Risk Screening:: None identified. Vital Signs: 08/28 20:09 BP 157 / 84 LA Sitting (auto/reg); Pulse 64 LA; Resp 18 S; Temp 97.9(O); Pulse Ox 100% mt4 on R/A; Weight 81.65 kg / 180.01 lbs (R); Height 5 ft. 8 in. (172.72 cm) (R); Pain 8/10; 08/29 01:12 BP 149 / 78; Pulse 65; Resp 18; Temp 97.6(O); Pulse Ox 97% on R/A; km 08/28 20:09 Body Mass Index 27.37 (81.65 kg, 172.72 cm) mt4 MDM: 08/28 20:33 UA Ordered. EDMS 20:34 Culture Urine Ordered. EDMS 23:08 UA Reviewed. mo1 23:18 ketorolac 60 mg IM once ordered. mo1 23:18 CBC with Diff Ordered. EDMS 23:18 BMP Ordered. EDMS 23:20 US Scrotal Ordered. EDMS 23:20 US Abd Limited Ordered. EDMS 23:37 Financial registration complete. gj 23:43 [facility] Payment Agreement was scanned into [employer] and attached to record. gjb 08/29 00:20 CBC with Diff Reviewed. mo1 00:34 BMP Reviewed. mo1 13:54 T-Sheet-- Draft Copy was scanned into [employer] and attached to record. kf3 Administered Medications: 08/28 23:32 Drug: ketorolac 60 mg [ketorolac 30 mg/mL (1 mL) injection solution (2 mL)] Route: IM; cz Site: left gluteus; Signatures: Dispatcher [employer] EDChel Valadez RN RN [facility] [place], Reg Reg kf3 Stas Romo, TROO PA mo1 Shelby Stewart gjb Jesus Ballesteros RN cz The chart was reviewed and I authenticate all verbal orders and agree with the evaluation and treatment provided.Attachments: :43 [facility] Payment Agreement page hospital 08/29 13:54 T-Sheet-- Draft Copy kf3 Chart Complete MTDD
--- NOTE | 2016-08-31 02:17 | EDDOCDS ---
Physician Documentation [facility] Name: Andrés Jenkins Age: 60 yrs Sex: Male : 1955 Arrival Date: 08/28/2016 Time: 20:06 Bed Triage 2 Private MD: Other - Complete Info On Cds Disposition: 08/29/16 01:00 Discharged to Home/Self Care. Impression: Pelvic and perineal pain. - Condition is Stable. - Discharge Instructions: Pelvic Pain, Male. - Medication Reconciliation, Local Pharmacy Hours form. - Follow up: Private Physician; When: Call to arrange an appointment; Reason: Recheck today's complaints, Continuance of care. - Problem is an ongoing problem. - Symptoms are unchanged. Historical: - Allergies: PENICILLINS; SULFA (SULFONAMIDES); - Home Meds: 1. atorvastatin 20 mg oral tab 1 tab once daily (Last dose: 08/28/2016) 2. Flonase 50 mcg/actuation Nasal spsn (Last dose: 08/28/2016) 3. losartan 25 mg oral tab 1 tab once daily (Last dose: 08/28/2016) 4. Spiriva with HandiHaler 18 mcg Inhl CpDv 1 cap once daily (Last dose: 08/28/2016) 5. Levaquin 750 mg Oral tab 1 tab once daily (Last dose: 08/28/2016) - PMHx: Hypercholesterolemia; Hypertension; Pneumothorax, Spontaneousx 3; - PSHx: removal of salavary gland; - Social history: Smoking status: Patient states former smoker of tobacco. No barriers to communication noted, The patient speaks fluent Luxembourgish, Speaks appropriately for age. - Family history: Not pertinent. - : The pt / caregiver states he / she is not on anticoagulants. Home medication list is obtained from the patient. - Exposure Risk Screening:: None identified. Vital Signs: 08/28 20:09 BP 157 / 84 LA Sitting (auto/reg); Pulse 64 LA; Resp 18 S; Temp 97.9(O); Pulse Ox 100% mt4 on R/A; Weight 81.65 kg / 180.01 lbs (R); Height 5 ft. 8 in. (172.72 cm) (R); Pain 8/10; 08/29 01:12 BP 149 / 78; Pulse 65; Resp 18; Temp 97.6(O); Pulse Ox 97% on R/A; km 08/28 20:09 Body Mass Index 27.37 (81.65 kg, 172.72 cm) mt4 MDM: 08/28 20:33 UA Ordered. EDMS 20:34 Culture Urine Ordered. EDMS 23:08 UA Reviewed. mo1 23:18 ketorolac 60 mg IM once ordered. mo1 23:18 CBC with Diff Ordered. EDMS 23:18 BMP Ordered. EDMS 23:20 US Scrotal Ordered. EDMS 23:20 US Abd Limited Ordered. EDMS 23:37 Financial registration complete. gj 23:43 [facility] Payment Agreement was scanned into [employer] and attached to record. gjb 08/29 00:20 CBC with Diff Reviewed. mo1 00:34 BMP Reviewed. mo1 13:54 T-Sheet-- Draft Copy was scanned into [employer] and attached to record. kf3 Administered Medications: 08/28 23:32 Drug: ketorolac 60 mg [ketorolac 30 mg/mL (1 mL) injection solution (2 mL)] Route: IM; cz Site: left gluteus; Signatures: Dispatcher [employer] EDChel Valadez RN RN [facility] [place] Mo Arce, Reg Reg kf3 Stas Romo, TORO PA mo1 Shelby Stewart gjb Jesus Ballesteros RN cz The chart was reviewed and I authenticate all verbal orders and agree with the evaluation and treatment provided.Attachments: :43 [facility] Payment Agreement [facility] 08/29 13:54 T-Sheet-- Draft Copy kf3 Chart Complete MTDD
== END 2016-08-29 01:15 | disposition home or self-care (01) ==
LOC: M ED 20:06
DX: N50.812 Left testicular pain (principal); R10.2 Pelvic and perineal pain; R30.0 Dysuria; I10 Essential (primary) hypertension; E78.00 Pure hypercholesterolemia, unspecified; Z79.899 Other long term (current) drug therapy; Z79.2 Long term (current) use of antibiotics; Z88.0 Allergy status to penicillin; Z88.2 Allergy status to sulfonamides
CPT/HCPCS: 36415; 76705; 76870; 80048; 81001; 85025; 87086; 96372; 99284; J1885